=== PATIENT | female | born 1980 | race American Indian/Alaskan Native ===

== ENCOUNTER 2019-01-05 19:27 | Emergency (ER) | payer OTHER ==
--- NOTE | 2019-01-05 19:37 | Event Note ---
ED Screening Note ED Screening Note: pt states she has one benadryl tablet stuck in her throat, took it 30 minutes ago states she tried drinking water states she has had pills get stuck before but they have moved on their own she is spitting out her secretions LNMP a week ago VSS This initial assessment/diagnostic orders/clinical plan/treatment(s) is/are subject to change based on patients health status, clinical progression and re- assessment by fellow clinical providers in the ED. Further treatment and workup at subsequent clinical providers discretion. Patient/guardian urged not to elope from the ED as their condition may be serious if not clinically assessed and managed.
[2019-01-05] MEDS ORDERED: GLUCAGEN IV ONE (21:09)
--- NOTE | 2019-01-05 22:12 | XRay Report ---
PROCEDURE: XR NECK SOFT TISSUE TECHNIQUE: Soft tissue neck radiographs, 2 views, including AP and lateral. HISTORY: fb stuck in throat COMPARISONS: None . FINDINGS: Bone mineralization: Normal . Alignment: Normal . Soft tissues: Epiglottis and hypopharyngeal soft tissues normal . Foreign bodies: None . IMPRESSION: Normal Examination . This document is electronically signed by Sridhar Reich MD., January 05 2019 10:10:37 PM ET
--- NOTE | 2019-01-05 23:20 | Emergency Department Report ---
ED General Adult HPI - General Chief complaint: Sore Throat Stated complaint: FOREIGN BODY IN THROAT Time Seen by Provider: 01/05/19 19:34 Source: patient Mode of arrival: Ambulatory Limitations: No Limitations - History of Present Illness Initial comments: 38-year-old -N[place]alese female presents emergency department complaining of a throat irritation from a suspected by mouth that was lost in her throat about 30 minutes prior to arrival. States that she took a Benadryl tablet and is unable to get it back up has not felt it go down, felt like feels that it is loss and throat is becoming sore. No fevers, chills, sweats. No wheezing, no hemoptysis, no hematemesis, no hematochezia. -: Sudden Location: neck Radiation: non-radiation Quality: dull Consistency: constant Improves with: none Worsens with: none Associated Symptoms: denies: confusion, chest pain, cough, diaphoresis, loss of appetite, malaise, nausea/vomiting, rash Treatments Prior to Arrival: none - Related Data Allergies Allergy/AdvReac Type Severity Reaction Status Date / Time No Known Allergies Allergy Verified 01/05/19 19:31 ED Review of Systems ROS: Stated complaint: FOREIGN BODY IN THROAT Other details as noted in HPI Comment: All other systems reviewed and negative ED Past Medical Hx - Past Medical History Previous Medical History?: No - Surgical History Past Surgical History?: No - Social History Smoking Status: Never Smoker Substance Use Type: None ED Physical Exam - General Limitations: No Limitations General appearance: alert, in no apparent distress - Head Head exam: Present: atraumatic, normocephalic - Eye Eye exam: Present: normal appearance, PERRL, EOMI Pupils: Present: normal accommodation - ENT ENT exam: Present: normal exam, normal orophraynx, mucous membranes moist, TM's normal bilaterally, other (airway patent. No exudate, no erythema. No edema. Tongue and uvula midline. Tongue normal size.) - Neck Neck exam: Present: normal inspection, tenderness. Absent: full ROM - Respiratory Respiratory exam: Present: normal lung sounds bilaterally. Absent: respiratory distress, wheezes, rales, rhonchi, chest wall tenderness, accessory muscle use, decreased breath sounds, prolonged expiratory - Cardiovascular Cardiovascular Exam: Present: regular rate, normal rhythm. Absent: systolic murmur, diastolic murmur, rubs, gallop - GI/Abdominal GI/Abdominal exam: Present: soft, normal bowel sounds. Absent: distended, tenderness, guarding, hyperactive bowel sounds, hypoactive bowel sounds, organomegaly, mass, pulsatile mass - Extremities Exam Extremities exam: Present: normal inspection - Back Exam Back exam: Present: normal inspection - Neurological Exam Neurological exam: Present: alert, oriented X3 - Psychiatric Psychiatric exam: Present: normal affect, normal mood - Skin Skin exam: Present: warm, dry, intact, normal color. Absent: rash ED Course Vital Signs 01/05/19 01/05/19 19:32 19:34 Temperature 98.6 F 98.6 F Pulse Rate 113 H 111 H Respiratory 18 18 Rate Blood Pressure 130/69 130/69 O2 Sat by Pulse 100 100 Oximetry ED Medical Decision Making - Radiology Data Radiology showed no acute process noted lumbar - Medical Decision Making Patient was medicated with glucagon reports that she was able to bring up the pill which she spit down the sink. Airway is patent. She tolerated by mouth in the locations. There are no hemoptysis. There is no wheezing. There is no stridor. Tongue and uvula are still midline, normal size reports no chest pain or shortness of breath. Critical care attestation.: If time is entered above; I have spent that time in minutes in the direct care of this critically ill patient, excluding procedure time. ED Disposition Clinical Impression: Sore throat, Foreign body sensation in throat Disposition: -01 TO HOME OR SELFCARE Is pt being admited?: No Does the pt Need Aspirin: No Condition: Stable Instructions: Pharyngitis (ED) Referrals: [facility] [Provider Group] - 3-5 Days
[2019-01-06 00:10] VITALS: BP 109/47
== END 2019-01-05 23:55 | disposition home or self-care (01) ==
LOC: ED 19:27
DX: T17.298A Other foreign object in pharynx causing other injury, initial encounter (principal); J02.9 Acute pharyngitis, unspecified; W45.8XXA Other foreign body or object entering through skin, initial encounter; Y93.89 Activity, other specified; Y92.89 Other specified places as the place of occurrence of the external cause; Y99.8 Other external cause status
CPT/HCPCS: 70360; 96374; 99283; J1610